=== PATIENT | female | born 1965 | race Caucasian/White ===

== ENCOUNTER 2017-03-06 21:07 | Emergency (ER) | payer MEDICAID ==
[~2017-03-06 21:07] MED LIST: APAP/HYDROCODON1 T13 PO; BACO TOP; EXCEDRIN1 TAB PO; HIBICLENS118 ML TOP; MOTRIN800 MG PO; ZANTAC 150150 MG PO; ZOF4 PO
[2017-03-06 23:26] VITALS: BP 134/68
== END 2017-03-06 23:26 | disposition home or self-care (01) ==
LOC: ED 21:07
DX: B34.9 Viral infection, unspecified (principal)

== ENCOUNTER 2017-03-09 05:20 | Emergency (ER) | payer MEDICAID ==
[~2017-03-09] VITALS: Ht 154.9 cm; Wt 66.7 kg
[2017-03-09 05:32] VITALS: Ht 154.9 cm; Wt 66.7 kg
[2017-03-09 07:09] VITALS: BP 147/82
== END 2017-03-09 07:10 | disposition home or self-care (01) ==
LOC: ED 05:20
DX: K29.70 Gastritis, unspecified, without bleeding (principal); L03.211 Cellulitis of face; I10 Essential (primary) hypertension; Z86.14 Personal history of Methicillin resistant Staphylococcus aureus infection
CPT/HCPCS: Q0162

== ENCOUNTER 2017-03-15 16:41 | Emergency (ER) | payer MEDICAID ==
[~2017-03-15] VITALS: Ht 154.9 cm; Wt 66.2 kg
[2017-03-15 16:56] VITALS: Ht 154.9 cm; Wt 66.2 kg
[2017-03-15 20:27] VITALS: BP 151/98
== END 2017-03-15 20:27 | disposition home or self-care (01) ==
LOC: ED 16:41
DX: M54.9 Dorsalgia, unspecified (principal)
CPT/HCPCS: J1885; Q0162

== ENCOUNTER 2017-07-05 03:48 | Emergency (ER) | payer SELFPAY ==
[2017-07-05 05:23] VITALS: BP 168/100
== END 2017-07-05 05:23 | disposition home or self-care (01) ==
LOC: ED 03:48
DX: G89.29 Other chronic pain (principal); M25.512 Pain in left shoulder
CPT/HCPCS: Q0092

== ENCOUNTER 2018-01-10 06:41 | Emergency (ER) | payer SELFPAY ==
[~2018-01-10] VITALS: Ht 154.9 cm; Wt 67.1 kg
[2018-01-10 06:45] VITALS: Ht 154.9 cm; Wt 67.1 kg
[2018-01-10 07:32] LABS: BASOPHIL % 0.7 % (0-2); PLATELET COUNT 387 x10^3mcL (130-400); RED CELL DISTRIBUTION WIDTH 12.7 % (11.5-14.5)
[2018-01-10 07:42] LABS: CALCIUM 9.5 mg/dL (8.5-10.1); CARBON DIOXIDE 29.1 mmol/L (21-32); CHLORIDE SERUM 106 mmol/L (98-107); GFR1 > 60 mL/min; GLUCOSE SERUM 144 mg/dL (74-106); POTASSIUM SERUM 4.4 mmol/L (3.5-5.1); SODIUM SERUM 141 mmol/L (136-145)
[2018-01-10 07:46] LABS: ALBUMIN 3.7 g/dL (3.4-5.0); ALKALINE PHOSPHATASE 165 U/L (46-116); ALT/SGPT 81 U/L (14-59); AMYLASE 30 U/L (25-115); AST/SGOT 25 U/L (15-37); BILIRUBIN TOTAL 0.4 mg/dL (0.20-1.00); LIPASE 153 IU/L (73-393); TOTAL PROTEIN, SERUM 8.2 g/dL (6.4-8.2)
[2018-01-10 07:47] LABS: UA SPECIFIC GRAVITY >=1.030 (1.005-1.035); microscopic required? YES; urine erythrocyte 1+ (NEGATIVE)
[2018-01-10 10:04] VITALS: BP 130/78
== END 2018-01-10 10:04 | disposition home or self-care (01) ==
LOC: ED 06:41
PROVIDERS: Emergency Medicine
DX: N39.0 Urinary tract infection, site not specified (principal); N12 Tubulo-interstitial nephritis, not specified as acute or chronic; Z87.442 Personal history of urinary calculi; Z90.89 Acquired absence of other organs; Z90.49 Acquired absence of other specified parts of digestive tract; Z86.19 Personal history of other infectious and parasitic diseases; Z93.6 Other artificial openings of urinary tract status
CPT/HCPCS: J1885; J7030

== ENCOUNTER 2019-03-20 19:52 | Emergency (ER) | payer MEDICAID ==
[~2019-03-20] VITALS: Ht 154.9 cm; Wt 72.7 kg
[2019-03-20 20:14] VITALS: Ht 154.9 cm; Wt 72.7 kg
[2019-03-21 00:51] VITALS: BP 159/83
== END 2019-03-21 00:51 | disposition home or self-care (01) ==
LOC: ED 19:52
DX: G56.03 Carpal tunnel syndrome, bilateral upper limbs (principal); R06.02 Shortness of breath; F17.210 Nicotine dependence, cigarettes, uncomplicated; Z98.890 Other specified postprocedural states; Z90.49 Acquired absence of other specified parts of digestive tract; Z87.442 Personal history of urinary calculi
CPT/HCPCS: 82962; 99406; Q0092

== ENCOUNTER 2019-04-09 20:15 | Emergency (ER) | payer MEDICAID ==
[~2019-04-09] VITALS: Ht 157.5 cm; Wt 74.8 kg
[2019-04-09 21:32] VITALS: Ht 157.5 cm; Wt 74.8 kg
[2019-04-09 23:40] VITALS: BP 130/68
[2019-04-09 23:57] LABS: UA SPECIFIC GRAVITY 1.025 (1.005-1.035); microscopic required? YES; urine erythrocyte 1+ (NEGATIVE)
== END 2019-04-09 23:40 | disposition home or self-care (01) ==
LOC: ED 20:15
PROVIDERS: Emergency Medicine
DX: K60.2 Anal fissure, unspecified (principal); K59.00 Constipation, unspecified; Z90.89 Acquired absence of other organs; Z90.49 Acquired absence of other specified parts of digestive tract; Z87.442 Personal history of urinary calculi

== ENCOUNTER 2019-05-04 03:31 | Emergency (ER) | payer MEDICAID ==
[~2019-05-04] VITALS: Ht 154.9 cm; Wt 72.6 kg
[2019-05-04 03:34] VITALS: Ht 154.9 cm; Wt 72.6 kg
[2019-05-04 05:32] VITALS: BP 136/80
== END 2019-05-04 05:32 | disposition home or self-care (01) ==
LOC: ED 03:31
DX: J11.1 Influenza due to unidentified influenza virus with other respiratory manifestations (principal); Z87.442 Personal history of urinary calculi; Z90.89 Acquired absence of other organs; Z90.49 Acquired absence of other specified parts of digestive tract
CPT/HCPCS: J1885

== ENCOUNTER 2019-07-30 18:04 | Emergency (ER) | payer MEDICAID ==
[~2019-07-30] VITALS: Ht 154.9 cm; Wt 68.9 kg
[2019-07-30 18:11] VITALS: Ht 154.9 cm; Wt 68.9 kg
[2019-07-31 01:22] VITALS: BP 138/79
== END 2019-07-31 01:22 | disposition home or self-care (01) ==
LOC: ED 18:04
DX: G44.209 Tension-type headache, unspecified, not intractable (principal); Z90.49 Acquired absence of other specified parts of digestive tract; Z90.89 Acquired absence of other organs
CPT/HCPCS: J0780; J1200; J1885; J7030

== ENCOUNTER 2019-07-31 23:31 | Emergency (ER) | payer MEDICAID ==
[~2019-07-31] VITALS: Ht 154.9 cm; Wt 70.5 kg
[2019-07-31 23:37] VITALS: Ht 154.9 cm; Wt 70.5 kg
[2019-08-01 05:46] VITALS: BP 120/68
== END 2019-08-01 05:46 | disposition home or self-care (01) ==
LOC: ED 23:31
DX: G43.909 Migraine, unspecified, not intractable, without status migrainosus (principal)
CPT/HCPCS: J8540

== ENCOUNTER 2020-01-01 18:21 | Emergency (ER) | payer MEDICAID ==
[~2020-01-01] VITALS: Ht 154.9 cm; Wt 70.3 kg
[2020-01-01 18:36] VITALS: Ht 154.9 cm; Wt 70.3 kg
[2020-01-01 22:33] LABS: CALCIUM 9.6 mg/dL (8.5-10.1); CARBON DIOXIDE 26.6 mmol/L (21-32); CHLORIDE SERUM 101 mmol/L (98-107); CREATININE SERUM 0.9 mg/dL (0.6-1.0); GFR1 > 60 mL/min; GLUCOSE SERUM 109 mg/dL (74-106); POTASSIUM SERUM 4.1 mmol/L (3.5-5.1); SODIUM SERUM 136 mmol/L (136-145)
[2020-01-01 22:37] LABS: ALBUMIN 3.9 g/dL (3.4-5.0); ALKALINE PHOSPHATASE 167 U/L (46-116); ALT/SGPT 53 U/L (14-59); AST/SGOT 31 U/L (15-37); BILIRUBIN TOTAL 0.67 mg/dL (0.20-1.00)
[2020-01-01 22:44] LABS: TOTAL PROTEIN, SERUM 8.7 g/dL (6.4-8.2)
[2020-01-02 01:01] VITALS: BP 166/86
[2020-01-07 18:22] LABS: PLATELET COUNT 385 x10^3mcL (130-400); RED CELL DISTRIBUTION WIDTH 13.4 % (11.5-14.5)
[2020-01-07 18:23] LABS: BASOPHIL % 0.8 % (0-2)
== END 2020-01-02 01:01 | disposition home or self-care (01) ==
LOC: ED 18:21
PROVIDERS: Emergency Medicine
DX: N20.0 Calculus of kidney (principal); Z90.89 Acquired absence of other organs; Z90.49 Acquired absence of other specified parts of digestive tract
CPT/HCPCS: J1885; J2270

== ENCOUNTER 2020-01-03 20:32 | Emergency (ER) | payer MEDICAID ==
[~2020-01-03] VITALS: Ht 154.9 cm; Wt 72.6 kg
[2020-01-03 20:47] VITALS: Ht 154.9 cm; Wt 72.6 kg
[2020-01-04 00:24] VITALS: BP 130/70
== END 2020-01-04 00:24 | disposition home or self-care (01) ==
LOC: ED 20:32
DX: M54.5 Low back pain (principal); Z87.442 Personal history of urinary calculi; Z90.49 Acquired absence of other specified parts of digestive tract; Z90.89 Acquired absence of other organs
CPT/HCPCS: J2270

== ENCOUNTER 2020-03-05 18:06 | Emergency (ER) | payer MEDICAID, SELFPAY ==
[~2020-03-05] VITALS: Ht 154.9 cm; Wt 68.0 kg
[2020-03-05 18:08] VITALS: BP 137/86; Ht 154.9 cm; Wt 68.0 kg
== END 2020-03-05 20:59 | disposition left against medical advice (07) ==
LOC: ED 18:06
DX: Z53.21 Procedure and treatment not carried out due to patient leaving prior to being seen by health care provider (principal)